=== PATIENT | male | born 1960 | race Caucasian/White ===

== ENCOUNTER 2017-03-08 10:50 | Inpatient (IN) | payer OTHER ==
[~2017-03-08] VITALS: Ht 188 cm; Wt 120.2 kg
[2017-03-08 12:12] LABS: HEMATOCRIT 33.1 % (38.0-50.0); HEMOGLOBIN 11.1 G/DL (12.5-16.6); MCH 27.9 PG (29.0-34.0); MCHC 33.5 G/DL (30.0-36.0); MCV 83.2 FL (86-99); PLATELET COUNT 254 K/uL (156-360); RBC DIS.WIDTH-CV 12.6 % (11.8-14.6); RBC DIS.WIDTH-SD 38.5 % (39-53); RED BLOOD COUNT 3.98 M/uL (4.00-5.50); WHITE BLOOD COUNT 5.9 K/uL (4.1-10.2)
[2017-03-08 12:21] LABS: CHLORIDE 100 mEq/L (99-109); POTASSIUM 4.5 mEq/L (3.7-5.4); SODIUM 133 mEq/L (136-147)
[2017-03-08 12:23] LABS: GLUCOSE 225 mg/dL (70-99)
[2017-03-08 12:27] LABS: CREATININE 1.3 mg/dL (0.6-1.3); GFR ESTIMATE (CALCULATED) > 59 mL/min/ (58.99-99999); UREA NITROGEN (BUN) 16 mg/dL (9-23)
[2017-03-08 14:36] LABS: BASOPHIL (%) 0.3 % (0-1); EOSINOPHIL (%) 0.2 % (0-5); IMMATURE GRANULOCYTE (%) 1.7 % (0.0-0.7); LYMPHOCYTE (%) 10.4 % (15-42); LYMPHOCYTE COUNT 0.6 K/uL (1.0-2.8); MONOCYTE (%) 11.9 % (3-12); MONOCYTE COUNT 0.7 K/uL (0-0.8); NEUTROPHIL (%) 75.5 % (45-76); NEUTROPHIL COUNT 4.4 K/uL (1.8-6.4); PLAT.SUFFICIENCY ADEQUATE
[2017-03-08 15:51] LABS: Estimated Average Glucose 306 mg/dL (70-123); HEMOGLOBIN A1c (GLYCOHEMOGLOB) 12.3 % HGB (Below 5.7)
[2017-03-08 15:54] LABS: APPEARANCE SL.HAZY ((CLEAR)); BILIRUBIN NEGATIVE; BLOOD NEGATIVE; COLOR YELLOW ((YELLOW)); GLUCOSE (STRIP) >=500; KETONES NEGATIVE; LEUKOCYTES NEGATIVE; NITRITE NEGATIVE; PROTEIN (STRIP) >=500; SPECIFIC GRAVITY 1.022 (1.000-1.030)
[2017-03-08 15:58] LABS: BACTERIA NONE SEEN /HPF; EPITHELIAL CELLS NONE SEEN /HPF; HYALINE CASTS 0-5 /LPF; MUCUS TRACE /LPF; RED BLOOD CELLS 0-5 /HPF (0-5); UCUL ADDED? NO; URIC ACID CRYSTALS 3+ /HPF; WHITE BLOOD CELLS 0-5 /HPF (0-5)
[2017-03-08 18:23] VITALS: BP 195/89
[2017-03-08 20:17] VITALS: BP 160/85
[2017-03-08 22:31] VITALS: BP 159/83
[2017-03-09] VITALS (11 sets, daily range): BP systolic 125–166; BP diastolic 58–74
[2017-03-09 01:14] LABS: HEMATOCRIT 31.2 % (38.0-50.0); HEMOGLOBIN 10.5 G/DL (12.5-16.6); MCV 84.8 FL (86-99)
[2017-03-09 06:09] LABS: HEMATOCRIT 28.2 % (38.0-50.0); HEMOGLOBIN 9.2 G/DL (12.5-16.6); MCH 27.8 PG (29.0-34.0); MCHC 32.6 G/DL (30.0-36.0); MCV 85.2 FL (86-99); PLATELET COUNT 261 K/uL (156-360); RBC DIS.WIDTH-SD 40.5 % (39-53); RED BLOOD COUNT 3.31 M/uL (4.00-5.50)
[2017-03-09 06:38] LABS: CHLORIDE 102 MEQ/L (99-109); CREATININE 1.2 MG/DL (0.6-1.3); GFR ESTIMATE (CALCULATED) > 59 mL/min/ (58.99-99999); GLUCOSE 233 mg/dL (70-99); SODIUM 133 MEQ/L (136-147); UREA NITROGEN (BUN) 17 mg/dL (9-23)
[2017-03-10] VITALS (8 sets, daily range): BP systolic 126–186; BP diastolic 53–83
[2017-03-10 12:24] LABS: HEMATOCRIT 28.2 % (38.0-50.0); HEMOGLOBIN 9.1 G/DL (12.5-16.6); MCH 27.1 PG (29.0-34.0); MCHC 32.3 G/DL (30.0-36.0); MCV 83.9 FL (86-99); PLATELET COUNT 305 K/uL (156-360); RBC DIS.WIDTH-CV 12.9 % (11.8-14.6); RBC DIS.WIDTH-SD 39.3 % (39-53); RED BLOOD COUNT 3.36 M/uL (4.00-5.50)
[2017-03-11 03:32] VITALS: BP 121/55
[2017-03-11 07:38] VITALS: BP 145/82
[2017-03-11 09:29] LABS: HEMATOCRIT 30.8 % (38.0-50.0); HEMOGLOBIN 10.1 G/DL (12.5-16.6); MCH 27.8 PG (29.0-34.0); MCHC 32.8 G/DL (30.0-36.0); MCV 84.8 FL (86-99); PLATELET COUNT 347 K/uL (156-360); RBC DIS.WIDTH-CV 12.6 % (11.8-14.6); RED BLOOD COUNT 3.63 M/uL (4.00-5.50); WHITE BLOOD COUNT 6.4 K/uL (4.1-10.2)
[2017-03-11 10:09] LABS: CHLORIDE 97 MEQ/L (99-109); CREATININE 1.1 MG/DL (0.6-1.3); GFR ESTIMATE (CALCULATED) > 59 mL/min/ (58.99-99999); GLUCOSE 131 mg/dL (70-99); POTASSIUM 4.8 MEQ/L (3.7-5.4); SODIUM 132 MEQ/L (136-147); UREA NITROGEN (BUN) 11 mg/dL (9-23)
[2017-03-11 11:35] VITALS: BP 128/65
[2017-03-11 15:20] VITALS: BP 119/67
[2017-03-11 19:35] VITALS: BP 132/64
[2017-03-11 23:57] VITALS: BP 180/88
[2017-03-12 03:46] VITALS: BP 177/93
[2017-03-12 07:32] VITALS: BP 174/86
[2017-03-12 11:56] VITALS: BP 145/80
[2017-03-12] MEDS ORDERED: LEVEMIR100 UNIT/2 SC (14:04)
[2017-03-12] MEDS ORDERED: TYLENOL REGULA325 MG PO (14:04)
[2017-03-12] MEDS ORDERED: NOVOLOG PE100 UNITS/ SC ×2 (14:08→17:19)
[2017-03-12] MEDS ORDERED: OXYCODONE HCL5 MG PO (14:09)
[2017-03-12] MEDS ORDERED: LISINOPRIL20 MG PO (14:09)
[2017-03-12] MEDS ORDERED: Zeasorb Antifungal T TP (14:09)
[2017-03-12] MEDS ORDERED: METFORMIN HCL500 MG PO (14:31)
[2017-03-12] MEDS ORDERED: GLIPIZIDE5 MG PO (14:31)
[2017-03-12] MEDS ORDERED: AUGMENTIN875 MG PO (14:31)
[2017-03-12] MEDS ORDERED: BACID1 CAP PO (17:20)
[2017-03-12] MEDS ORDERED: LOVENOX40 MG/0.4 SQ (17:21)
== END 2017-03-12 15:16 | DRG 463 ==
LOC: EME 10:50 → 5SOUTH 13:12 → EDOF 13:12 → ENRESERV 13:26 → EDOF 14:17 → ENRESERV 14:48 → 5SOUTH 17:39
PROVIDERS: Emergency Medicine; Internal Medicine; Nurse Practitioner Adult Health; Podiatrist Foot & Ankle Surgery
DX: M86.072 Acute hematogenous osteomyelitis, left ankle and foot (principal); A48.0 Gas gangrene; E11.52 Type 2 diabetes mellitus with diabetic peripheral angiopathy with gangrene; E87.1 Hypo-osmolality and hyponatremia; L02.611 Cutaneous abscess of right foot; L03.115 Cellulitis of right lower limb; Z79.4 Long term (current) use of insulin; E86.1 Hypovolemia; E11.621 Type 2 diabetes mellitus with foot ulcer; L97.514 Non-pressure chronic ulcer of other part of right foot with necrosis of bone; M24.874 Other specific joint derangements of right foot, not elsewhere classified; E11.65 Type 2 diabetes mellitus with hyperglycemia; E11.42 Type 2 diabetes mellitus with diabetic polyneuropathy; E11.69 Type 2 diabetes mellitus with other specified complication; Z91.14 Patient's other noncompliance with medication regimen; Z91.19 Patient's noncompliance with other medical treatment and regimen; Z79.84 Long term (current) use of oral hypoglycemic drugs
CPT/HCPCS: 71045; 73630; 80048; 80202; 81003; 82948; 83036; 83605; 85014; 85018; 85025; 85027; 85651; 87040; 87070; 87075; 87076; 87077; 87185; 87186; 87205; 88305; 88311; 93005; 93926; 93971; 94799; 99281; 99285; J0690; J1200; J1650; J1815; J2250; J2405; J3010; J3370; J7030; J7050; S0020

== ENCOUNTER 2017-03-12 14:04 | Inpatient (IN) | payer OTHER ==
[~2017-03-12 14:04] MED LIST: LEVEMIR100 UNIT/2 SC; TYLENOL REGULA325 MG PO
[2017-03-12] MEDS ORDERED: NOVOLOG PE100 UNITS/ SC ×2 (14:08→17:19)
[2017-03-12] MEDS ORDERED: Zeasorb Antifungal T TP (14:09)
[2017-03-12] MEDS ORDERED: OXYCODONE HCL5 MG PO (14:09)
[2017-03-12] MEDS ORDERED: LISINOPRIL20 MG PO (14:09)
[2017-03-12] MEDS ORDERED: GLIPIZIDE5 MG PO (14:31)
[2017-03-12] MEDS ORDERED: METFORMIN HCL500 MG PO (14:31)
[2017-03-12] MEDS ORDERED: AUGMENTIN875 MG PO (14:31)
[2017-03-12 15:49] VITALS: BP 128/62
[2017-03-12] MEDS ORDERED: BACID1 CAP PO (17:20)
[2017-03-12] MEDS ORDERED: LOVENOX40 MG/0.4 SQ (17:21)
[2017-03-12 23:02] VITALS: BP 159/77
[2017-03-13 05:15] VITALS: BP 142/62
[2017-03-13 09:48] LABS: ALBUMIN 2.5 G/DL (3.2-4.8); ALKALINE PHOSPHATASE 75 IU/L (3-129); ALT (GPT) 11 IU/L (3-49); AST (GOT) 15 IU/L (2-34); CHLORIDE 98 MEQ/L (99-109); GFR ESTIMATE (CALCULATED) > 59 mL/min/ (58.99-99999); GLUCOSE 131 mg/dL (70-99); POTASSIUM 4.5 MEQ/L (3.7-5.4); SODIUM 133 MEQ/L (136-147); TOTAL BILIRUBIN 0.3 MG/DL (0.0-1.0); TOTAL PROTEIN 7.7 G/DL (6.4-8.3); UREA NITROGEN (BUN) 14 mg/dL (9-23)
[2017-03-13 11:10] LABS: HEMOGLOBIN 11.6 G/DL (12.5-16.6); MCH 28.3 PG (29.0-34.0); MCHC 33.1 G/DL (30.0-36.0); MCV 85.4 FL (86-99); RBC DIS.WIDTH-CV 12.7 % (11.8-14.6); RBC DIS.WIDTH-SD 39.3 % (39-53); WHITE BLOOD COUNT 6.9 K/uL (4.1-10.2)
[2017-03-13 11:12] LABS: PLATELET COUNT 505 K/uL (156-360)
[2017-03-13 15:41] VITALS: BP 115/68
[2017-03-14 05:52] VITALS: BP 142/84
[2017-03-14 14:49] VITALS: BP 108/60
[2017-03-15 06:03] VITALS: BP 156/83
[2017-03-15 15:02] VITALS: BP 115/63
[2017-03-16 05:57] VITALS: BP 135/73
[2017-03-16 15:43] VITALS: BP 115/68
[2017-03-17 06:20] VITALS: BP 160/83
[2017-03-17 15:23] VITALS: BP 131/65
[2017-03-18 05:43] VITALS: BP 161/84
[2017-03-18 14:40] VITALS: BP 115/71
[2017-03-19 04:57] VITALS: BP 156/78
[2017-03-19 15:52] VITALS: BP 108/61
[2017-03-20 06:04] VITALS: BP 152/72
[2017-03-20 06:19] LABS: HEMATOCRIT 31.6 % (38.0-50.0); MCH 26.9 PG (29.0-34.0); MCHC 31.6 G/DL (30.0-36.0); MCV 84.9 FL (86-99); PLATELET COUNT 365 K/uL (156-360); RBC DIS.WIDTH-CV 12.4 % (11.8-14.6); RED BLOOD COUNT 3.72 M/uL (4.00-5.50); WHITE BLOOD COUNT 4.6 K/uL (4.1-10.2)
[2017-03-20 06:52] LABS: CHLORIDE 102 MEQ/L (99-109); CREATININE 1.2 MG/DL (0.6-1.3); GFR ESTIMATE (CALCULATED) > 59 mL/min/ (58.99-99999); GLUCOSE 95 mg/dL (70-99); SODIUM 135 MEQ/L (136-147)
[2017-03-20 06:57] LABS: UREA NITROGEN (BUN) 26 mg/dL (9-23)
[2017-03-20 15:32] VITALS: BP 121/63
[2017-03-21 05:35] VITALS: BP 162/74
[2017-03-21 15:06] VITALS: BP 119/69
[2017-03-22 04:50] VITALS: BP 143/69
[2017-03-22 15:18] VITALS: BP 130/77
[2017-03-23 05:52] VITALS: BP 114/55
[2017-03-23 15:00] VITALS: BP 157/77
[2017-03-24 04:19] VITALS: BP 124/72
[2017-03-24 15:12] VITALS: BP 120/69
[2017-03-24 16:12] LABS: HEMATOCRIT 31.5 % (38.0-50.0); HEMOGLOBIN 10.4 G/DL (12.5-16.6); MCH 27.8 PG (29.0-34.0); MCV 84.2 FL (86-99); PLATELET COUNT 311 K/uL (156-360); RBC DIS.WIDTH-CV 12.7 % (11.8-14.6); RBC DIS.WIDTH-SD 38.5 % (39-53); RED BLOOD COUNT 3.74 M/uL (4.00-5.50); WHITE BLOOD COUNT 3.9 K/uL (4.1-10.2)
[2017-03-24 16:48] LABS: ALBUMIN 2.9 G/DL (3.2-4.8); ALKALINE PHOSPHATASE 64 IU/L (3-129); ALT (GPT) 5 IU/L (3-49); AST (GOT) 11 IU/L (2-34); CHLORIDE 99 MEQ/L (99-109); CREATININE 1.3 MG/DL (0.6-1.3); GFR ESTIMATE (CALCULATED) > 59 mL/min/ (58.99-99999); GLUCOSE 172 mg/dL (70-99); POTASSIUM 4.3 MEQ/L (3.7-5.4); SODIUM 135 MEQ/L (136-147); TOTAL BILIRUBIN 0.2 MG/DL (0.0-1.0); TOTAL PROTEIN 7.9 G/DL (6.4-8.3); UREA NITROGEN (BUN) 23 mg/dL (9-23)
[2017-03-24] MEDS ORDERED: AUGMENTIN875 MG PO (17:31)
[2017-03-24] MEDS ORDERED: METFORMIN HCL500 MG PO (19:20)
[2017-03-24] MEDS ORDERED: LISINOPRIL20 MG PO (19:20)
[2017-03-25 05:29] VITALS: BP 148/79
== END 2017-03-25 13:30 | disposition home health service (06) | DRG 559 ==
LOC: 3WEST 14:04 → ENPENDDIS 03-18 → EDPENDDISDT 03-22 → 3WEST 03-25 13:30
PROVIDERS: Physical Medicine & Rehabilitation Pain Medicine
PROC: F07M0ZZ Range of Motion and Joint Mobility Treatment of Musculoskeletal System - Whole Body (ICD-10-PCS; principal; 2017-03-12)
PROC: 0HBMXZZ Excision of Right Foot Skin, External Approach (ICD-10-PCS; principal; 2017-03-12)
PROC: 0JQQ3ZZ Repair Right Foot Subcutaneous Tissue and Fascia, Percutaneous Approach (ICD-10-PCS; 2017-03-20)
DX: Z47.81 Encounter for orthopedic aftercare following surgical amputation (principal); M86.171 Other acute osteomyelitis, right ankle and foot; Z89.431 Acquired absence of right foot; R26.2 Difficulty in walking, not elsewhere classified; E11.69 Type 2 diabetes mellitus with other specified complication; E11.621 Type 2 diabetes mellitus with foot ulcer; L97.419 Non-pressure chronic ulcer of right heel and midfoot with unspecified severity; T87.81 Dehiscence of amputation stump; W19.XXXA Unspecified fall, initial encounter; Y92.239 Unspecified place in hospital as the place of occurrence of the external cause; E11.52 Type 2 diabetes mellitus with diabetic peripheral angiopathy with gangrene; A48.0 Gas gangrene; I10 Essential (primary) hypertension; E11.40 Type 2 diabetes mellitus with diabetic neuropathy, unspecified; D62 Acute posthemorrhagic anemia; E87.1 Hypo-osmolality and hyponatremia; Z95.0 Presence of cardiac pacemaker
CPT/HCPCS: 80048; 80053; 82948; 85027; 85651; 86140; 97110 GO; 97530 GP; J0690; J1650; J1815